=== PATIENT | male | born 1940 | race Caucasian/White ===

== ENCOUNTER 2024-02-03 03:11 | Emergency (ER) | payer MEDICARE ==
[~2024-02-03] VITALS: Ht 182.9 cm; Wt 108.2 kg
[~2024-02-03 03:11] MED LIST: EPIN0.3P3 IM
[2024-02-03 03:16] VITALS: BP 208/90; PULSE 112; RESP 16; TEMP 97.9; O2SAT 95
== END 2024-02-03 05:33 | disposition left against medical advice (07) ==
LOC: ER 03:12
DX: R31.9 Hematuria, unspecified (principal); R35.0 Frequency of micturition; Z53.21 Procedure and treatment not carried out due to patient leaving prior to being seen by health care provider